=== PATIENT | female | born 1990 | race African-American/Black ===

== ENCOUNTER 2017-03-21 06:46 | Emergency (ER) | payer MEDICAID ==
[~2017-03-21] VITALS: Ht 160 cm; Wt 80.0 kg
[2017-03-21] MEDS ORDERED: ACETAMINOPHEN 500MG TABLET PO ONE (07:15)
[2017-03-21] MEDS ORDERED: LIDOCAINE HCL 1% 20ML VIAL (Pyxis) INJ INFIL ONE (07:15)
[2017-03-21] MEDS ORDERED: TETANUS, DIPHTHERIA, PERTUSSIS VAC/PF 0.5ML (>7YR OLD) IM ONE (07:15)
[2017-03-21 10:24] VITALS: BP 130/92
== END 2017-03-21 10:26 | disposition home or self-care (01) ==
LOC: ER 07:14
DX: S81.011A Laceration without foreign body, right knee, initial encounter (principal); X99.9XXA Assault by unspecified sharp object, initial encounter; Y93.89 Activity, other specified; Y92.488 Other paved roadways as the place of occurrence of the external cause
CPT/HCPCS: 12002; 73562; 90471; 90715; 99284; J3490; Z7610; 99285

== ENCOUNTER 2017-03-25 11:23 | Emergency (ER) | payer MEDICAID ==
[~2017-03-25] VITALS: Ht 160 cm; Wt 77.0 kg
[2017-03-25 11:32] VITALS: BP 134/77
== END 2017-03-25 16:00 | disposition home or self-care (01) ==
LOC: ER 12:17
DX: S81.011D Laceration without foreign body, right knee, subsequent encounter (principal); X58.XXXD Exposure to other specified factors, subsequent encounter
CPT/HCPCS: 81025; 99283

== ENCOUNTER 2017-07-15 03:29 | Emergency (ER) | payer MEDICAID ==
[~2017-07-15] VITALS: Ht 172.7 cm; Wt 73.0 kg
[2017-07-15 03:34] VITALS: BP 132/82
== END 2017-07-15 05:00 | disposition left against medical advice (07) ==
LOC: ER 03:29
DX: N93.9 Abnormal uterine and vaginal bleeding, unspecified (principal); Z53.21 Procedure and treatment not carried out due to patient leaving prior to being seen by health care provider

== ENCOUNTER 2024-01-09 20:48 | Emergency (ER) | payer MEDICAID ==
[~2024-01-09] VITALS: Ht 160 cm; Wt 80.0 kg
[2024-01-09 20:53] VITALS: BP 141/93; RESP 20; TEMP 98; O2SAT 97
[2024-01-09 21:02] VITALS: PULSE 75; O2SAT 100
[2024-01-09] MEDS: CEFTRIAXONE SODIUM 500MG VIAL IM ONE (21:15)
[2024-01-09] MEDS: DOXYCYCLINE HYCLATE 100MG CAPSULE PO ONE (21:15)
== END 2024-01-09 21:03 | disposition left against medical advice (07) ==
LOC: ER 20:48
DX: T76.21XA Adult sexual abuse, suspected, initial encounter (principal)
CPT/HCPCS: 99281